=== PATIENT | female | born 1970 | race Caucasian/White ===

== ENCOUNTER 2024-11-24 13:05 | Emergency (ER) | payer BC, MEDICAID ==
[~2024-11-24] VITALS: Ht 160 cm; Wt 74.0 kg
[2024-11-24 13:21] VITALS: TEMP 98.5; O2SAT 99
[2024-11-24 14:00] VITALS: BP 170/72; PULSE 85; RESP 16
[2024-11-24] MEDS: IBUPROFEN 600MG TABLET PO ONE (14:00)
[2024-11-24] MEDS ORDERED: KETO10TA2 MT (15:01)
== END 2024-11-24 15:33 | disposition home or self-care (01) ==
LOC: ER 13:05
DX: S92.422A Displaced fracture of distal phalanx of left great toe, initial encounter for closed fracture (principal); I10 Essential (primary) hypertension; Z98.890 Other specified postprocedural states; W20.8XXA Other cause of strike by thrown, projected or falling object, initial encounter; Y93.89 Activity, other specified; Y92.89 Other specified places as the place of occurrence of the external cause; Y99.8 Other external cause status
CPT/HCPCS: 29515; 73630; 99283

== ENCOUNTER 2024-11-28 12:41 | Emergency (ER) | payer BC, MEDICAID ==
[~2024-11-28] VITALS: Ht 160 cm; Wt 74.8 kg
[~2024-11-28 12:41] MED LIST: KETO10TA2 MT
[2024-11-28 12:44] VITALS: O2SAT 99
[2024-11-28 12:48] VITALS: BP 125/86; PULSE 81; RESP 16; TEMP 36.7; O2SAT 100
== END 2024-11-28 13:33 | disposition home or self-care (01) ==
LOC: ER 12:41
DX: S92.912A Unspecified fracture of left toe(s), initial encounter for closed fracture (principal); I10 Essential (primary) hypertension; Z98.890 Other specified postprocedural states; X58.XXXA Exposure to other specified factors, initial encounter; Y93.89 Activity, other specified; Y92.89 Other specified places as the place of occurrence of the external cause; Y99.8 Other external cause status
CPT/HCPCS: 99281